=== PATIENT | female | born 1930 | race African-American/Black ===

== ENCOUNTER 2016-12-18 00:53 | Inpatient (IN) | payer OTHER ==
[~2016-12-18] VITALS: Ht 154.9 cm; Wt 68.9 kg
--- NOTE | ~2016-12-18 | HC ---
[facility] [place] [address] CONSULTATION Name: DECLAN JAMISON Room #: 438-P ADM IN M.R.#: [id number] Admission: 12/18/16 Attend Phys: Norberto Birch MD Discharge: Date of : 34 Report #: [id number] THIS REPORT FOR: //name// CC: LOC Birch DATE OF SERVICE: 12/18/2016 REASON FOR CONSULTATION: Acute kidney injury in this patient with urinary tract infection. HISTORY OF PRESENT ILLNESS: This 86-year-old warm and has a history of diabetes mellitus and hypertension. She presented to the Emergency Room with complaints of urinary frequency and dysuria. She states that she has never had a previous urinary tract infection. She has longstanding blindness, believed related to diabetes mellitus. She states that she was in the process of being referred to a behavioral geneticist for renal evaluation, but had not seen a previous behavioral geneticist. She is followed in the [facility] by Dr. Elliott. ALLERGIES: No known drug allergies. PAST MEDICAL HISTORY: Remarkable for diabetes mellitus, hypertension, blindness, and hypothyroidism. She has a history of longstanding glaucoma and diabetes mellitus. FAMILY HISTORY: Remarkable for diabetes mellitus, but negative for renal disease. PERSONAL AND SOCIAL HISTORY: The patient has a [id number] smoking history, but has not smoked in many years. She has no history of alcohol or substance abuse. REVIEW OF SYSTEMS: Remarkable for the absence of edema. She denies shortness of breath, productive cough, hemoptysis, chest pain, palpitations, nausea, vomiting, diarrhea, or constipation. PHYSICAL EXAMINATION: GENERAL: Reveals a well-developed, well-nourished female appearing her stated age, in no acute distress. VITAL SIGNS: Blood pressure 140/51, temperature 98.9, pulse 102, and respirations 18. SKIN: Warm and dry. There is no clubbing, cyanosis, edema, or adenopathy present. HEENT: The head is normocephalic and atraumatic. The sclerae are white and conjunctivae are not injected. Pharynx is benign. [address] [address] CONSULTATION Name: DECLAN JAMISON Room #: 438-P [facility] IN M.R.#: [id number] Admission: 12/18/16 Attend Phys: Norberto Birch MD Discharge: Date of : 34 Report #: [id number] NECK: Supple. LUNGS: Delgado are grossly clear to percussion and auscultation. CARDIOVASCULAR: Reveals a regular rate and rhythm without rub. ABDOMEN: Soft and nontender, without palpable mass or organomegaly. NEUROLOGIC: Reveals the patient to be blind, otherwise, nonfocal examination. DIAGNOSTIC DATA: Available at this time include sodium 139, potassium 4.3, chloride 105, CO2 21, BUN 42, creatinine 3.3, and glucose 150. White blood cell count 8100, hemoglobin 10.2, hematocrit 31.5, and platelet count 272,000. Urinalysis reveals 2+ protein, 1+ blood, 3+ leukocytes, and many bacteria seen. ASSESSMENT: 1. Urinary tract infection with culture pending, on empiric antibiotic therapy. 2. Suspected acute kidney injury related to urinary tract infection as well as significant compartment of chronic kidney disease, likely related to longstanding diabetes mellitus and hypertension. 3. Diabetes mellitus. 4. Hypertension. PLAN: We will obtain a renal ultrasound as well as await urine culture and blood culture results. The patient appears hemodynamically stable at this time. She will likely need additional chronic kidney disease followup and education regarding her renal status. Please see orders. <ELECTRONICALLY SIGNED> By: Carlos Correia MD 12/19/16 [id number] Carlos Correia MD /nt
[2016-12-18 00:57] VITALS: BP 236/92
[2016-12-18] MEDS ORDERED: NORTRIPTYLINE H10 M1 PO (01:07)
[2016-12-18] MEDS ORDERED: PROTONIX40 M1 PO (01:07)
[2016-12-18] MEDS ORDERED: FELODIPINE 5 MG5 M1 PO (01:08)
[2016-12-18] MEDS ORDERED: ALPHAGAN P15 ML OP (01:09)
[2016-12-18] MEDS ORDERED: TIMOLOL GL0.5 %/5 M1 OP (01:10)
[2016-12-18] MEDS ORDERED: BRIMONIDINE TAR1 BO1 OP (01:11)
[2016-12-18] MEDS ORDERED: LEVOTHYROXINE 0.1 MG PO (01:12)
[2016-12-18] MEDS ORDERED: LISINOPRIL20 MG PO (01:12)
[2016-12-18] MEDS ORDERED: LOPRESSOR50 PO (01:13)
[2016-12-18] MEDS ORDERED: GLUCOPHAGE1000 MG PO (01:14)
[2016-12-18] MEDS ORDERED: VITAMIN D3400 UNIT PO (01:14)
[2016-12-18 02:09] LABS: ABSOLUTE NEUTROPHILS 4.8 thou/uL (1.4-8.2); HEMATOCRIT 31.5 % (37.0-47.0); HEMOGLOBIN 10.2 gm/dL (12.0-15.0); LYMPHOCYTES 29.9 % (24.0-44.0); MCH 26.1 pg (26.0-34.0); MCHC 32.5 g/dL (28.0-37.0); MCV 80.2 fL (80.0-100.0); PLATELET COUNT 272 thou/uL (150-400); POLYS 59.1 % (36.0-66.0); RBC 3.92 mil/uL (4.20-5.00); RDW 16.4 % (10.5-14.5); WBC 8.1 thou/uL (4.0-11.0)
[2016-12-18 02:10] LABS: MANUAL DIFF NO
[2016-12-18 02:20] LABS: ANION GAP 13 mmol/L (7-16); BUN 42 mg/dL (7-18); CALCIUM 8.9 mg/dL (8.5-10.1); CHLORIDE 105 mmol/L (98-107); CO2 21 mmol/L (21-32); CREATININE 3.3 mg/dL (0.6-1.0); GLUCOSE 150 mg/dL (74-106); POTASSIUM 4.3 mmol/L (3.5-5.1); SODIUM 139 mmol/L (136-145)
[2016-12-18 02:23] LABS: URINE BILIRUBIN NEGATIVE (Negative); URINE BLOOD 1+ (Negative); URINE COLOR YELLOW; URINE GLUCOSE-RANDOM* NEGATIVE (Negative); URINE KETONES NEGATIVE (Negative); URINE NITRITE NEGATIVE (Negative); URINE PROTEIN (DIPSTICK) 2+ (Negative); URINE UROBILINOGEN 0.2 E.U./dl (0.2-1.0)
[2016-12-18 02:24] LABS: ALBUMIN 3.4 g/dL (3.4-5.0); ALKALINE PHOSPHATASE 100 U/L (46-116); DIRECT BILIRUBIN < 0.1 mg/dL (<0.1-0.3); SGOT 10 U/L (15-37); SGPT 10 U/L (30-65); TOTAL BILIRUBIN 0.1 mg/dL (<0.1-1.0); TOTAL PROTEIN 7.9 g/dL (6.4-8.2)
[2016-12-18 03:04] LABS: SQUAMOUS 0-3 Few /LPF (0-3)
[2016-12-18 03:05] LABS: URINE WBC >25 Many /HPF (0-5); WBC CLUMPS Many (None Seen)
[2016-12-18 03:06] LABS: BACTERIA 1-9 Few /HPF (None Seen); CASTS None Seen /LPF (None Seen); CRYSTALS None Seen /LPF (None Seen); URINE RBC 3-10 Few /HPF (0-2)
[2016-12-18 03:27] VITALS: BP 168/69
[2016-12-18 04:00] VITALS: BP 198/72
[2016-12-18 08:00] VITALS: BP 140/51
[2016-12-18 10:11] LABS: % SATURATION 9 % (20-39); IRON 30 ug/dL (50-170); TIBC 346 ug/dL (250-450); UIBC 316 ug/dL
[2016-12-18 16:00] VITALS: BP 146/58
[2016-12-18 19:59] VITALS: BP 143/41
[2016-12-19 05:00] VITALS: BP 149/72
[2016-12-19 05:10] LABS: GLYCOHEMOGLOBIN (HGB A1C) 7.3 % (4.8-5.6)
[2016-12-19 06:33] LABS: HEMATOCRIT 28.2 % (37.0-47.0); MCHC 31.9 g/dL (28.0-37.0); MCV 81.6 fL (80.0-100.0); RBC 3.45 mil/uL (4.20-5.00); RDW 16.3 % (10.5-14.5)
[2016-12-19 06:50] LABS: ALBUMIN 2.6 g/dL (3.4-5.0); CALCIUM 7.9 mg/dL (8.5-10.1); CREATININE 2.1 mg/dL (0.6-1.0); PHOSPHORUS 3.5 mg/dL (2.5-4.9); POTASSIUM 4.3 mmol/L (3.5-5.1)
[2016-12-19 08:00] VITALS: BP 184/65
[2016-12-19 16:00] VITALS: BP 184/65
[2016-12-19 19:20] VITALS: BP 170/68
[2016-12-20 04:05] VITALS: BP 173/72
[2016-12-20 06:07] LABS: HEMATOCRIT 28.9 % (37.0-47.0); HEMOGLOBIN 9.4 gm/dL (12.0-15.0); MCH 26.2 pg (26.0-34.0); MCHC 32.6 g/dL (28.0-37.0); MCV 80.4 fL (80.0-100.0); RBC 3.6 mil/uL (4.20-5.00); RDW 16.5 % (10.5-14.5); WBC 8.2 thou/uL (4.0-11.0)
[2016-12-20 06:22] LABS: ALBUMIN 2.7 g/dL (3.4-5.0); CALCIUM 8.2 mg/dL (8.5-10.1); PHOSPHORUS 3.2 mg/dL (2.5-4.9); POTASSIUM 4.5 mmol/L (3.5-5.1)
[2016-12-20 08:09] VITALS: BP 168/67
[2016-12-20] MEDS ORDERED: CIPRO250 M1 PO (15:12)
[2016-12-20 15:23] VITALS: BP 168/67
[2016-12-21 16:13] LABS: c-ANCA <1:20 titer (Neg:<1:20); p-ANCA <1:20 titer (Neg:<1:20)
== END 2016-12-20 19:27 | disposition home or self-care (01) | DRG 689 ==
LOC: ER 00:53 → 4S 02:49 → EROBS 02:49 → 4S 04:00
PROVIDERS: Emergency Medicine; Internal Medicine; Internal Medicine Nephrology; Nurse Practitioner Acute Care
DX: N39.0 Urinary tract infection, site not specified (principal); N17.0 Acute kidney failure with tubular necrosis; I16.0 Hypertensive urgency; H40.9 Unspecified glaucoma; H54.0 Blindness, both eyes; D64.9 Anemia, unspecified; G30.9 Alzheimer's disease, unspecified; E03.9 Hypothyroidism, unspecified; E11.22 Type 2 diabetes mellitus with diabetic chronic kidney disease; I12.9 Hypertensive chronic kidney disease with stage 1 through stage 4 chronic kidney disease, or unspecified chronic kidney disease; N18.9 Chronic kidney disease, unspecified; Z83.3 Family history of diabetes mellitus; Z87.891 Personal history of nicotine dependence; Z79.899 Other long term (current) drug therapy
CPT/HCPCS: 10102